=== PATIENT | female | born 1970 | race Caucasian/White ===

== ENCOUNTER 2016-07-05 10:55 | Emergency (ER) | payer OTHER ==
[~2016-07-05] VITALS: Ht 170.2 cm; Wt 118.3 kg
[2016-07-05] MEDS ORDERED: TOPROL XL25 MG PO (11:01)
[2016-07-05] MEDS ORDERED: AMLODIPINE BESY10 MG PO (11:01)
[2016-07-05] MEDS ORDERED: CITALOPRAM HBR10 MG PO (11:02)
[2016-07-05] MEDS ORDERED: TYLENOL REGULA325 MG PO (11:02)
[2016-07-05] MEDS ORDERED: ALEVE220 MG PO (11:02)
[2016-07-05 12:07] LABS: CHLORIDE 102 mEq/L (99-109); D-DIMER ELISA 0.38 mg/L FEU (< 0.57); INTER. NORMALIZED RATIO 1.1; PROTHROMBIN TIME 11.1 (9.2-11.2); PTT 27.5 (25-32); SODIUM 138 mEq/L (136-147)
[2016-07-05 12:09] LABS: GLUCOSE 117 mg/dL (70-99)
[2016-07-05 12:11] LABS: ANION GAP 15 MEQ/L (2-14); TOTAL BILIRUBIN 0.7 mg/dL (0.0-1.0)
[2016-07-05 12:13] LABS: ALKALINE PHOSPHATASE 70 IU/L (3-129); EOSINOPHIL (%) 3.1 % (0-5); EOSINOPHIL COUNT 0.2 K/uL (0-0.3); GFR ESTIMATE (CALCULATED) > 59 mL/min/; IMMATURE GRANULOCYTE (%) 0.1 % (0.0-0.7); IMMATURE GRANULOCYTE COUNT 0.1 K/uL; LYMPHOCYTE COUNT 2.2 K/uL (1.0-2.8); MCH 34.3 PG (29.0-34.0); MCHC 35.7 G/DL (30.0-36.0); MCV 96.1 FL (83-99); MEAN PLAT.VOLUME 10.6 uM^3 (9.5-12.4); MONOCYTE (%) 7.2 % (3-12); MONOCYTE COUNT 0.5 K/uL (0-0.8); NEUTROPHIL (%) 59.8 % (45-76); NEUTROPHIL COUNT 4.5 K/uL (1.8-6.4); PLATELET COUNT 198 K/uL (156-360); RBC DIS.WIDTH-CV 12.3 % (11.8-14.6); RBC DIS.WIDTH-SD 41.6 % (39-53); RED BLOOD COUNT 4.58 M/uL (3.80-5.20); WHITE BLOOD COUNT 7.5 K/uL (4.1-10.2)
[2016-07-05 12:14] LABS: UREA NITROGEN (BUN) 13 mg/dL (9-23)
[2016-07-05 12:16] LABS: LIPASE 16 U/L (1.0-51.0)
[2016-07-05 12:17] LABS: TROP-I INTERPRETATION NEGATIVE; TROPONIN-I < 0.01 ng/mL (0.0-0.30)
[2016-07-05 13:37] VITALS: BP 173/94
== END 2016-07-05 13:37 | disposition home or self-care (01) ==
LOC: EME → EDBD 10:55 → EME 13:37
PROVIDERS: Emergency Medicine
DX: R10.13 Epigastric pain (principal); K21.0 Gastro-esophageal reflux disease with esophagitis; I10 Essential (primary) hypertension; E78.5 Hyperlipidemia, unspecified
CPT/HCPCS: 71010; 80053; 83690; 84484; 85025; 85379; 85610; 85730; 93005; 99281; 99284

== ENCOUNTER 2016-11-19 13:35 | Emergency (ER) | payer OTHER ==
[~2016-11-19] VITALS: Ht 170.2 cm; Wt 118.0 kg
[~2016-11-19 13:35] MED LIST: ALEVE220 MG PO; AMLODIPINE BESY10 MG PO; CITALOPRAM HBR10 MG PO; TOPROL XL25 MG PO; TYLENOL REGULA325 MG PO
[2016-11-19] MEDS ORDERED: ACYCLOVIR200 MG PO (16:21)
[2016-11-19] MEDS ORDERED: LIDODERM 5% P1 PATCH TD (16:21)
[2016-11-19] MEDS ORDERED: NORCO 5/3251 TABLET PO (16:21)
[2016-11-19 16:32] VITALS: BP 163/109
== END 2016-11-19 16:33 | disposition home or self-care (01) ==
LOC: EME 13:35
DX: B02.9 Zoster without complications (principal); I10 Essential (primary) hypertension; E78.5 Hyperlipidemia, unspecified; I48.91 Unspecified atrial fibrillation; F32.9 Major depressive disorder, single episode, unspecified
CPT/HCPCS: 99281; 99283

== ENCOUNTER 2017-03-08 17:08 | Emergency (ER) | payer OTHER ==
[~2017-03-08] VITALS: Ht 170.2 cm; Wt 104.7 kg
[~2017-03-08 17:08] MED LIST changes: +ACYCLOVIR200 MG PO; +LIDODERM 5% P1 PATCH TD; +NORCO 5/3251 TABLET PO
[2017-03-08 17:49] LABS: HEMATOCRIT 44.1 % (36.0-46.0); MCH 34.1 PG (29.0-34.0); MCHC 34.9 G/DL (30.0-36.0); MCV 97.6 FL (83-99); MEAN PLAT.VOLUME 10.9 uM^3 (9.5-12.4); PLATELET COUNT 200 K/uL (156-360); RBC DIS.WIDTH-CV 11.9 % (11.8-14.6); RBC DIS.WIDTH-SD 43.1 % (39-53); RED BLOOD COUNT 4.52 M/uL (3.80-5.20); WHITE BLOOD COUNT 8.1 K/uL (4.1-10.2)
[2017-03-08 17:58] LABS: CHLORIDE 104 mEq/L (99-109); POTASSIUM 4.1 mEq/L (3.7-5.4); SODIUM 140 mEq/L (136-147)
[2017-03-08 18:00] LABS: GLUCOSE 109 mg/dL (70-99)
[2017-03-08 18:01] LABS: ANION GAP 14 MEQ/L (2-14)
[2017-03-08 18:03] LABS: GFR ESTIMATE (CALCULATED) > 59 mL/min/
[2017-03-08 18:04] LABS: UREA NITROGEN (BUN) 14 mg/dL (9-23)
[2017-03-08 20:58] VITALS: BP 172/95
== END 2017-03-08 20:56 | disposition home or self-care (01) ==
LOC: EME 17:08
DX: K62.5 Hemorrhage of anus and rectum (principal); I10 Essential (primary) hypertension; E78.5 Hyperlipidemia, unspecified; F32.9 Major depressive disorder, single episode, unspecified
CPT/HCPCS: 74177; 80048; 85027; 86850; 86900; 86901; 99281; 99285; J7030